=== PATIENT | male | born 1965 | race African-American/Black ===

== ENCOUNTER 2017-06-02 07:10 | Emergency (ER) | payer SELFPAY ==
[~2017-06-02] VITALS: Ht 185.4 cm; Wt 85.0 kg
[2017-06-02 07:12] VITALS: BP 149/79; PULSE 77; RESP 16; TEMP 98.2; O2SAT 99
[2017-06-02] MEDS ORDERED: NAPROXEN 500 MG TAB PO ONE (07:45)
[2017-06-02] MEDS ORDERED: ASPI81TA23 PO (07:59)
--- NOTE | 2017-06-02 08:27 | RADRPT ---
EXAM DATE/TIME: 06/02/2017 08:20 [place] COMPARISON: No previous studies available for comparison. INDICATIONS : Right knee pain and swelling for years. MEDICAL HISTORY : Arthritis. SURGICAL HISTORY : None. ENCOUNTER: Initial ACUITY: >1 year PAIN SCORE: 10/10 LOCATION: Right knee. FINDINGS: Multiple views of the knee show joint space narrowing with periarticular sclerotic change and mild os teophyte production. This is most pronounced within the medial compartment. No fracture or dislocatio n. No joint effusion. Soft tissues are unremarkable. CONCLUSION: 1. Mild osteoarthritis. 2. No acute abnormality. Kevin Fitch Jr., MD on June 02, 2017 at 8:23 Board Certified Radiologist. This report was verified electronically.
--- NOTE | 2017-06-02 08:27 | PD ---
HPI Chief Complaint: Pain: Acute or Chronic Time Seen by Provider: 07:37 Travel History International Travel<30 days: No Contact w/Intl Traveler<30days: No History of Present Illness HPI 51-year-old male presents to the emergency Department with complaint of right knee pain on and off for the past 5 years. Says he has history of gout and arthritis to the right knee. Woke up this morning with the knee pain. Denies new or recent injury. Denies past injury. Denies fever, vomiting. Denies paresthesias, loss of sensation, decreased strength to the affected extremity. Ambulatory with a limp. He takes aspirin daily for his knee pain. Wears a knee brace for support. Rates pain 10/10. Throbbing in sensation. Worse with walking, flexion. Better at rest but states pain is constant. No primary care provider. History of [place] in 2005. No known allergies. Has no other medical complaints. No other modifying factors or associated signs and symptoms. PFSH Past Medical History Cardiovascular Problems: Yes Myocardial Infarction: Yes Past Surgical History Surgical History: No Previous Surgery Social History Alcohol Use: Yes (OCC BEER) Tobacco Use: No Substance Use: No Allergies-Medications (Allergen,Severity, Reaction): Coded Allergies: No Known Allergies (Unverified , 06/02/17) Reported Meds & Prescriptions Reported Meds & Active Scripts Active Naproxen 500 Mg Tab 500 Mg PO BID PRN Reported Aspirin EC (Aspirin) 81 Mg Tabdr 81 Mg PO DAILY Review of Systems Except as stated in HPI: all other systems reviewed are Neg Physical Exam Narrative GENERAL: Well-nourished, well-developed black male patient, in no acute distress ; afebrile, nontoxic-appearing SKIN: Warm and dry. HEAD: Atraumatic. Normocephalic. EYES: Pupils equal and round. No scleral icterus. No injection or drainage. ENT: Mucosa pink and moist. Airway patent. NECK: Trachea midline. CARDIOVASCULAR: Regular rate. RESPIRATORY: No accessory muscle use. GASTROINTESTINAL: Flat. MUSCULOSKELETAL: Right knee mildly edematous, nonerythematous, and without ecchymosis; decreased range of motion with flexion to approximately 45; point tenderness to the medial aspect; joint stable with negative drawer test; no obvious deformity. Right Lower extremity is supple and non-tense with 2+ pedal pulse and sensory intact and without erythema or edema. Ambulatory in room with a limp to the right lower extremity. No cyanosis. No edema. No obvious deformity. NEUROLOGICAL: Awake and alert. Oriented 3. No obvious cranial nerve deficits. Motor grossly within normal limits. Normal speech. PSYCHIATRIC: Appropriate mood and affect; insight and judgment normal. Data Data Last Documented VS Vital Signs Date Time Temp Pulse Resp B/P (MAP) Pulse Ox O2 Delivery O2 Flow Rate FiO2 06/02/17 07:12 98.2 77 16 149/79 (102) 99 Orders Orders Knee, Complete (4vws) (06/02/17 07:44) Crutches (06/02/17 07:44) Naproxen (Naprosyn) (06/02/17 07:45) MDM Medical Decision Making Medical Screen Exam Complete: Yes Emergency Medical Condition: Yes Medical Record Reviewed: Yes Differential Diagnosis Arthritis, gout, bursitis, injury Narrative Course 51-year-old male with right knee pain. Right knee x-ray and naproxen ordered. 0834: Right knee x-ray concludes osteoarthritis of the right knee. Patient provided a copy of the x-ray report. Instructed patient to follow up with orthopedics. Medrol Dosepak and naproxen prescribed for home. Crutches provided for support. Patient provided information to [facility] for follow-up. Instructed patient to follow up with primary care provider. Patient verbalizes understanding and agreement with treatment plan. Patient is medically cleared and stable for discharge. Discussed reasons to return to the emergency department. Patient agrees with treatment plan. The patients vital signs are stable and the patient is stable for outpatient follow-up and treatment. Patient discharged home, stable and in no acute distress. Diagnosis Primary Impression: Osteoarthritis of right knee Qualified Codes: M17.11 - Unilateral primary osteoarthritis, right knee Referrals: [facility] Orthopaedic Surgeon Primary Care Physician Patient Instructions: Crutch Instructions (ED), General Instructions, Osteoarthritis (ED) Additional Instructions: Naproxen, Tylenol, or Ibuprofen as needed and as directed to reduce pain and inflammation Rest, ice, compress, and elevate extremity to decrease pain and inflammation Knee brace for support Crutches or cane for support Avoid aggravating activity; increase activity as tolerated Follow-up with primary care provider Follow-up with orthopedics Return to the emergency department immediately with worsening symptoms Med/Other Pt SpecificInfo: Prescription(s) given Scripts Methylprednisolone Dosepak (Medrol Dosepak) 4 Mg Dspk 4 MG PO DIRECTED, #1 DSPK 0 Refills Per Pharmacist direction Prov: Tessa Sellers 06/02/17 Naproxen (Naproxen) 500 Mg Tab 500 MG PO BID Y for PAIN SCALE 1 TO 10, #20 TAB 0 Refills Prov: Tessa Sellers 06/02/17 Disposition: 01 DISCHARGE HOME Condition: Stable Tessa Sellers Jun 02, 2017 08:27
[2017-06-02] MEDS ORDERED: NAPR500T2 PO (08:32)
[2017-06-02] MEDS ORDERED: MEDR4PAK PO (08:34)
== END 2017-06-02 08:48 | disposition home or self-care (01) ==
LOC: NEPD 07:10
DX: M17.11 Unilateral primary osteoarthritis, right knee (principal); M10.9 Gout, unspecified; I25.2 Old myocardial infarction; Z79.82 Long term (current) use of aspirin
CPT/HCPCS: 73564; 99283; E0113